=== PATIENT | male | born 1990 | race American Indian/Alaskan Native ===

== ENCOUNTER → 2018-08-01 | Emergency (ER) | payer OTHER ==
--- NOTE | 2018-08-01 17:02 | Emergency Department Report ---
Chief Complaint: Wound/Laceration Stated Complaint: BUTTOCK PRESSURE/PAIN Time Seen by Provider: 08/01/18 16:57 - HPI History of Present Illness: pt presents to the ED with c/o pressure wound to the left gluteus [place] that began two months ago states it has gotten worse did have drainage no fever no N/V/D has had sacral wounds in the past PMHx paraplegia MSE screening note: Focused history performed. Due to findings the following was ordered: labs ED Disposition for MSE Condition: Stable
[2018-08-01 17:27] LABS: Basophils % (Auto) 0.6 % (0.0-1.8); Eosinophils # (Auto) 0.5 K/mm3 (0.0-0.4); Hematocrit 42.9 % (35.5-45.6); Hemoglobin 14.7 gm/dl (11.8-15.2); Lymphocytes # (Auto) 1.9 K/mm3 (1.2-5.4); Lymphocytes % (Auto) 36.2 % (13.4-35.0); Mean Corpuscular HGB Conc 34 % (32-34); Mean Corpuscular Volume 92 fl (84-94); Monocytes # (Auto) 0.8 K/mm3 (0.0-0.8); Monocytes % (Auto) 15.5 % (0.0-7.3); Platelet Count 268 K/mm3 (140-440); Red Blood Count 4.64 M/mm3 (3.65-5.03); Red Cell Distribution Width 14.4 % (13.2-15.2)
[2018-08-01 17:38] LABS: BUN/Creatinine Ratio 40; Blood Urea Nitrogen 20 mg/dL (9-20); Calcium 10.1 mg/dL (8.4-10.2); Hemolysis Index 5
[2018-08-01 19:44] VITALS: BP 104/61
== END | disposition left against medical advice (07) ==
LOC: ED 16:48
DX: M54.5 Low back pain (principal); Z53.21 Procedure and treatment not carried out due to patient leaving prior to being seen by health care provider
CPT/HCPCS: 36415; 80048; 82140; 85025